=== PATIENT | male | born 1995 | race Caucasian/White ===

== ENCOUNTER 2016-07-06 00:51 | Emergency (ER) | payer SELFPAY ==
[~2016-07-06] VITALS: Ht 185.4 cm; Wt 124.9 kg
[2016-07-06 00:58] VITALS: BP 137/85; PULSE 93; RESP 14; TEMP 98.2; O2SAT 98
[2016-07-06] MEDS ORDERED: HYDR-3516 PO (02:19)
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
[2016-07-06 03:00] VITALS: BP 135/82; PULSE 90; RESP 18; O2SAT 98
== END 2016-07-06 04:41 | disposition home or self-care (01) ==
LOC: PHED 00:51
DX: S62.91XA Unspecified fracture of right hand, initial encounter for closed fracture (principal); W18.30XA Fall on same level, unspecified, initial encounter; Y93.02 Activity, running; Y92.89 Other specified places as the place of occurrence of the external cause
CPT/HCPCS: 73120; 99283

== ENCOUNTER 2017-07-26 13:31 | Emergency (ER) | payer SELFPAY | END 2017-07-26 14:39 | disposition home or self-care (01) | LOC: NEPE 13:31 | DX: S31.829D Unspecified open wound of left buttock, subsequent encounter (principal); S81.802D Unspecified open wound, left lower leg, subsequent encounter; W34.00XD Accidental discharge from unspecified firearms or gun, subsequent encounter; Z72.0 Tobacco use | CPT/HCPCS: 99283 ==